=== PATIENT | female | born 1945 | race Caucasian/White ===

== ENCOUNTER 2018-01-25 08:19 | Emergency (ER) | payer MEDICARE, BC ==
--- NOTE | 2018-01-25 08:53 | EDM.PDOC ---
ED HPI GENERAL MEDICAL PROBLEM - General Chief Complaint: Back Pain or Injury Stated Complaint: BACK PAIN Time Seen by Provider: 01/25/18 08:51 Source of Information: Reports: Patient, RN, RN Notes Reviewed History Limitations: Reports: No Limitations - History of Present Illness INITIAL COMMENTS - FREE TEXT/NARRATIVE: Pt presents to ER by POV with c/o severe low back pain with spasms that began Tuesday, with no injury, or causative activity. The pain began all across the lumbar region, but today has moved more to the Rt low back and into the Rt flank and side. She denies hematuria, fever, chills, dysuria, nausea, or vomiting. Pt admits to some recent diarrhea. While giving past medical Hx and informing me of her medications the pt frequently had to stop to concentrate, and stated that her thoughts are "foggy" today. She denies headache, chest pain , or visual changes. Duration: Constant Location: Reports: Back Quality: Reports: Ache (with spasms) Severity: Severe Improves with: Reports: Immobilization, Rest Worsens with: Reports: Movement Associated Symptoms: Reports: No Other Symptoms Back Pain Score (Numeric/FACES): 8 - Related Data Allergies Allergy/AdvReac Type Severity Reaction Status Date / Time oxycodone Allergy severe Verified 01/25/18 08:35 vomiting narcotics Allergy severe Uncoded 01/25/18 08:48 vomiting Home Meds: Home Meds ALPRAZolam [Alprazolam] 0.5 mg PO BID PRN 01/25/18 [History] Amiodarone [Cordarone] 200 mg PO DAILY 01/25/18 [History] Calcitriol 0.25 mcg PO DAILY 01/25/18 [History] Cholecalciferol (Vitamin D3) [Vitamin D3] 2,000 units PO DAILY 01/25/18 [History ] Digoxin 0.125 mg PO Q48H 01/25/18 [History] Furosemide 40 mg PO DAILY PRN 01/25/18 [History] Gabapentin [Neurontin] 100 mg PO TID PRN 01/25/18 [History] Hydrochlorothiazide [Microzide] 12.5 mg PO DAILY 01/25/18 [History] Hydrocortisone [Hydrocortisone 1% Crm] 1 appful TOP ASDIRECTED PRN 01/25/18 [ History] Levothyroxine 75 mcg PO DAILY 01/25/18 [History] Lisinopril 20 mg PO DAILY 01/25/18 [History] [place]-3 Fatty Acids [[place]-3] 100 mg PO DAILY 01/25/18 [History] Rosuvastatin Calcium [Crestor] 40 mg PO DAILY 01/25/18 [History] Vitamin B Complex 1 cap PO DAILY 01/25/18 [History] Warfarin Dosing [Coumadin Ask] 1 tab PO ASDIRECTED 01/25/18 [History] Past Medical History HEENT History: Reports: Impaired Vision Cardiovascular History: Reports: Afib, High Cholesterol, Hypertension Genitourinary History: Reports: Chronic Renal Insuffiency Musculoskeletal History: Reports: Back Pain, Chronic (sciatica) Endocrine/Metabolic History: Reports: Obesity/BMI 30+ Social & Family History - Family History Family Medical History: Noncontributory - Recreational Drug Use Recreational Drug Use: No - Living Situation & Occupation Living situation: Reports: with Spouse Occupation: Retired ED ROS GENERAL - Review of Systems Review Of Systems: ROS reveals no pertinent complaints other than HPI. ED EXAM,LOWER BACK PAIN/INJURY - Physical Exam Exam: See Below Exam Limited By: No Limitations General Appearance: Alert, No Apparent Distress, Obese, Other (uncomfortable appearing) Eye Exam: Bilateral Eye: EOMI, Normal Inspection, PERRL Ears: Hearing Grossly Normal Nose: Normal Inspection, Normal Mucosa, No Blood Throat/Mouth: Normal Inspection, Normal Lips, Normal Teeth, Normal Gums, Normal Oropharynx, Normal Voice, No Airway Compromise Head: Atraumatic, Normocephalic Neck: Normal Inspection, Supple, Non-Tender, Full Range of Motion Respiratory/Chest: No Respiratory Distress, Lungs Clear, Normal Breath Sounds, No Accessory Muscle Use, Chest Non-Tender Cardiovascular: Regular Rate, Rhythm, No Edema GI/Abdominal: Normal Bowel Sounds, Soft, Non-Tender, No Distention, Other ( benign obese abdomen) (Female) Exam: Deferred Rectal (Female) Exam: Deferred Back Exam: CVA Tenderness (R), Decreased Range of Motion (T/L/S spinal regions due to pain), Muscle Spasm (severe lumbar spasms R>L), Paraspinal Tenderness. No: CVA Tenderness (L), Vertebral Tenderness Extremities: Normal Inspection, Normal Range of Motion, Non-Tender, No Pedal Edema. No: Joint Swelling, Marcus's Sign Neurological: Alert, Normal Mood/Affect, Normal Dorsiflexion, CN II-XII Intact, Normal Plantar Flexion, No Motor/Sensory Deficits, Oriented x 3, Other (mild confusion) Psychiatric: Normal Mood Skin Exam: Warm, Dry, Intact, Normal Color, No Rash EKG INTERPRETATION EKG Date: 01/25/18 Time: 10:29 Rhythm: Other (Sinus Naif) Rate (Beats/Min): 59 [place]: Normal P-Wave: Present QRS: Normal ST-T: Normal QT: Normal Comparison: NA - No Prior EKG Course - Vital Signs Last Recorded V/S: Last Vital Signs Temp 37.1 C 01/25/18 08:26 Pulse 57 L 01/25/18 08:26 Resp 18 01/25/18 08:26 BP 111/49 L 01/25/18 08:26 Pulse Ox 100 01/25/18 08:26 - Orders/Labs/Meds Orders: Active Orders 24 hr Category Date Time Status EKG 12 Lead [EKG Documentation Completion] [] STAT Care 01/25/18 10:12 Active Peripheral IV Care [] . DIRECTED Care 01/25/18 09:04 Active Sodium Chloride 0.9% [Saline Flush] Med 01/25/18 09:03 Active 10 ml FLUSH ASDIRECTED PRN Peripheral IV Insertion Adult [OM.PC] Stat Oth 01/25/18 09:03 Ordered Medication Orders Sodium Chloride (Saline Flush) 10 ml FLUSH ASDIRECTED PRN PRN Reason: Keep Vein Open Last Admin: 01/25/18 09:30 Dose: 10 ml Labs: Laboratory Tests 01/25/18 01/25/18 01/25/18 Range/Units 09:07 09:17 09:17 WBC 6.0 (5.0-10.0) 10^3/uL RBC 4.36 (4.2-5.4) 10^6/uL Hgb 12.4 (12.0-16.0) g/dL Hct 39.1 (37.0-47.0) % MCV 89.7 (80-100) fL MCH 28.4 (27.0-34.0) pg MCHC 31.7 L (33.0-35.0) g/dL Plt Count 208 (150-450) 10^3/uL Neut % (Auto) 67.5 (42.2-75.2) % Lymph % (Auto) 23.7 (20.5-50.1) % [place] % (Auto) 6.0 (2-8) % Eos % (Auto) 2.5 (1.0-3.0) % Baso % (Auto) 0.3 (0.0-1.0) % PT 22.1 H (9.0-12.0) SEC INR 2.3 H (0.9-1.2) Sodium (135-145) mmol/L Potassium (3.6-5.0) mmol/L Chloride (101-111) mmol/L Carbon Dioxide (21.0-31.0) mmol/L Anion Gap BUN (7-18) mg/dL Creatinine (0.6-1.3) mg/dL Est Cr Clr Drug Dosing mL/min Estimated GFR (MDRD) BUN/Creatinine Ratio Glucose (74-105) mg/dL Calcium (8.4-10.2) mg/dl Total Bilirubin (0.2-1.0) mg/dL AST (10-42) IU/L ALT (10-60) IU/L Alkaline Phosphatase (42-121) IU/L C-Reactive Protein (0.0-1.3) mg/dL Total Protein (6.7-8.2) g/dl Albumin (3.2-5.5) g/dl Globulin Albumin/Globulin Ratio Urine Color Yellow (YELLOW) Urine Appearance Clear (CLEAR) Urine pH 6.0 (5.0-9.0) Ur Specific [place] 1.015 (1.005-1.030) Urine Protein Negative (NEGATIVE) Urine Glucose (UA) Negative (NEGATIVE) Urine Ketones Negative (NEGATIVE) Urine Occult Blood Trace-lysed H (NEGATIVE) Urine Nitrite Negative (NEGATIVE) Urine Bilirubin Negative (NEGATIVE) Urine Urobilinogen 0.2 (0.2-1.0) mg/dL Ur Leukocyte Esterase Small H (NEGATIVE) Urine RBC 0-5 /HPF Urine WBC 5-10 H (0-5/HPF) /HPF Ur Epithelial Cells Moderate H /HPF Urine Bacteria Moderate H (0-FEW/HPF) /HPF Urine Mucus Few H /LPF Digoxin (0-2.5) ng/ml 09/12/18 09/12/18 09/12/18 Range/Units 09:17 09:17 09:17 WBC (5.0-10.0) 10^3/uL RBC (4.2-5.4) 10^6/uL Hgb (12.0-16.0) g/dL Hct (37.0-47.0) % MCV (80-100) fL MCH (27.0-34.0) pg MCHC (33.0-35.0) g/dL Plt Count (150-450) 10^3/uL Neut % (Auto) (42.2-75.2) % Lymph % (Auto) (20.5-50.1) % [place] % (Auto) (2-8) % Eos % (Auto) (1.0-3.0) % Baso % (Auto) (0.0-1.0) % PT (9.0-12.0) SEC INR (0.9-1.2) Sodium 140 (135-145) mmol/L Potassium 3.6 (3.6-5.0) mmol/L Chloride 102 (101-111) mmol/L Carbon Dioxide 28.0 (21.0-31.0) mmol/L Anion Gap 13.6 BUN 18 (7-18) mg/dL Creatinine 1.4 H (0.6-1.3) mg/dL Est Cr Clr Drug Dosing 33.00 mL/min Estimated GFR (MDRD) 37 BUN/Creatinine Ratio 12.85 Glucose 103 (74-105) mg/dL Calcium 9.0 (8.4-10.2) mg/dl Total Bilirubin 1.1 H (0.2-1.0) mg/dL AST 23 (10-42) IU/L ALT 22 (10-60) IU/L Alkaline Phosphatase 62 (42-121) IU/L C-Reactive Protein 0.5 (0.0-1.3) mg/dL Total Protein 6.9 (6.7-8.2) g/dl Albumin 3.8 (3.2-5.5) g/dl Globulin 3.1 Albumin/Globulin Ratio 1.23 Urine Color (YELLOW) Urine Appearance (CLEAR) Urine pH (5.0-9.0) Ur Specific [place] (1.005-1.030) Urine Protein (NEGATIVE) Urine Glucose (UA) (NEGATIVE) Urine Ketones (NEGATIVE) Urine Occult Blood (NEGATIVE) Urine Nitrite (NEGATIVE) Urine Bilirubin (NEGATIVE) Urine Urobilinogen (0.2-1.0) mg/dL Ur Leukocyte Esterase (NEGATIVE) Urine RBC /HPF Urine WBC (0-5/HPF) /HPF Ur Epithelial Cells /HPF Urine Bacteria (0-FEW/HPF) /HPF Urine Mucus /LPF Digoxin 3.6 H* (0-2.5) ng/ml Meds: Medications Generic Name Dose Route Start Last Admin Trade Name Freq PRN Reason Stop Dose Admin Sodium Chloride 10 ml 01/25/18 09:03 01/25/18 09:30 Saline Flush FLUSH 10 ml ASDIRECTED PRN Administration Keep Vein Open Discontinued Medications Generic Name Dose Route Start Last Admin Trade Name Freq PRN Reason Stop Dose Admin Hydromorphone HCl 0.5 mg 01/25/18 09:06 01/25/18 09:52 Dilaudid IVPUSH 01/25/18 09:07 0.5 mg ONETIME ONE Administration Ondansetron HCl 4 mg 01/25/18 09:05 01/25/18 09:48 Zofran IV 01/25/18 09:06 4 mg ONETIME ONE Administration - Re-Assessments/Exams Free Text/Narrative Re-Assessment/Exam: IMPRESSION: 1. 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 2. Right paracentral/lateral canal disc protrusion at L2-3. Central spinal canal stenosis is likely moderate. The right lateral recess is effaced near the right L3 nerve root. 3. Severe central spinal canal stenosis at L4-5 due to developmental spinal canal narrowing in combination with acquired degenerative changes. The lateral recesses are effaced near the L5 nerve roots. Thank you for allowing us to participate in the care of your patient. Dictated and Authenticated by: Divya Guardado MD 01/25/2018 10:51 AM Central Time ([place] & [place]) 01/25/18 11:13 [facility] Final Radiology Report Call: [phone] assistance Online chat: [email or web address] Name: NOAH NORIEGA Age: 72Years F Date: 01/25/2018 SSN: -- : [id number] Study: CT ABDOMEN/PELVIS WO Requesting Physician: LUISITO BROUSSARD Images: [id number] Addl Studies: Provided Clinical History: possible kidney stone Contrast: Without Contrast Medium: Contrast Amount: Contrast Method: Page 1 of 2 EXAM: CT Abdomen and Pelvis Without Intravenous Contrast EXAM DATE/TIME: 01/25/2018 10:03 AM CLINICAL HISTORY: 72 years old, female; Pain; Abdominal pain; Flank; Right; Prior surgery; Surgery date: 6+ months; Surgery type: Gallbladder; Additional info: Possible kidney stone TECHNIQUE: Axial computed tomography images of the abdomen and pelvis without intravenous contrast. All CT scans at this facility use at least one of these dose optimization techniques: automated exposure control; mA and/or kV adjustment per patient size (includes targeted exams where dose is matched to clinical indication); or iterative reconstruction. Coronal and sagittal reformatted images were created and reviewed. COMPARISON: No relevant prior studies available. FINDINGS: Lower thorax: Minor linear atelectasis versus scarring in the lingula. The lung bases appear emphysematous. There is scarring in the medial right lower lobe. There are cardiac valvular calcifications. ABDOMEN: Liver: Normal. No mass. Gallbladder and bile ducts: Cholecystectomy clips in the gallbladder fossa. Pancreas: Normal. No ductal dilation. Spleen: There are calcified granulomata in the spleen. Adrenals: Normal. No mass. NOAH NORIEGA | Final Radiology Report CONFIDENTIALITY STATEMENT This report is intended only for use by the referring physician, and only in accordance with law. If you received this in error, call [phone]. Page 2 of 2 Kidneys and ureters: No hydronephrosis. There is a punctate calcification in the right pelvis favored to represent venous phleboliths immediately adjacent to the distal ureter. No evidence of an obstructing ureteral calculus. The ureters are nondilated. Stomach and bowel: There is colonic diverticulosis without evidence of diverticulitis. No obstruction. The rectal wall appears thickened and heterogeneous, for example seen on axial image 140 of series 4. The appearance could be related to underdistention or perhaps prominent submucosal fat deposition which can be incidental or has an association with inflammatory bowel disease. Recommend correlation with colonoscopy to exclude malignancy. Appendix: A normal appendix is seen. PELVIS: Bladder: Unremarkable as visualized. Reproductive: The left ovary demonstrates a 1.9 cm cyst which is atypical for age but likely benign. Recommend annual ultrasound followup. ABDOMEN and PELVIS: Intraperitoneal space: Normal. No free air. No significant fluid collection. Bones/joints: No acute fracture seen. Soft tissues: Unremarkable. Vasculature: The aorta demonstrates mild atherosclerosis. Lymph nodes: Normal. No pathologically enlarged lymph nodes. IMPRESSION: 1. No evidence of obstructive uropathy. 2. 1.9 cm left ovarian cyst which is atypical for age but likely benign. Recommend initial annual pelvic ultrasound followup if stability has not been documented. 3. Thickened and heterogeneous appearance of the rectal wall, as described above. Recommend correlation with colonoscopy to exclude malignancy. Thank you for allowing us to participate in the care of your patient. Dictated and Authenticated by: Divya Guardado MD 01/25/2018 11:06 AM Central Time ([place] & [place]) Free Text/Narrative Re-Assessment/Exam: 01/25/18 11:00 Dr. Addison declines admission, and wishes to have the pt transferred to [facility] for digoxin toxicity. Departure - Departure Time of Disposition: 11:49 Disposition: DC/Tfer to Acute Hospital 02 Condition: Serious Clinical Impression: Spasm of muscle of lower back Digoxin toxicity Qualifiers: Encounter type: initial encounter Injury intent: accidental or unintentional Qualified Code(s): T46.0X1A - Poisoning by cardiac-stimulant glycosides and drugs of similar action, accidental (unintentional), initial encounter Acute low back pain Qualifiers: Back pain laterality: bilateral Sciatica presence: without sciatica Qualified Code(s): M54.5 - Low back pain - Discharge Information *PRESCRIPTION DRUG MONITORING PROGRAM REVIEWED*: No *COPY OF PRESCRIPTION DRUG MONITORING REPORT IN PATIENT DORY: No Forms: ED Department Discharge, Interfacility Transfer EMTALA - My Orders Last 24 Hours: My Active Orders 01/25/18 09:03 Sodium Chloride 0.9% [Saline Flush] 10 ml FLUSH ASDIRECTED PRN Peripheral IV Insertion Adult [OM.PC] Stat 01/25/18 09:04 Peripheral IV Care [RC] . DIRECTED 01/25/18 10:12 EKG 12 Lead [EKG Documentation Completion] [RC] STAT - Assessment/Plan Last 24 Hours: My Active Orders 01/25/18 09:03 Sodium Chloride 0.9% [Saline Flush] 10 ml FLUSH ASDIRECTED PRN Peripheral IV Insertion Adult [OM.PC] Stat 01/25/18 09:04 Peripheral IV Care [RC] . DIRECTED 01/25/18 10:12 EKG 12 Lead [EKG Documentation Completion] [RC] STAT
[2018-01-25] MEDS ORDERED: Sodium Chloride 0.9% 10 ML Syringe FLUSH PRN (09:03)
[2018-01-25] MEDS ORDERED: Ondansetron 4 MG/2 ML SDV IV ONE (09:05)
[2018-01-25] MEDS ORDERED: HYDROmorphone 1 MG/ML Syringe IVPUSH ONE (09:06)
[2018-01-25 09:43] LABS: ANION GAP 13.6
--- NOTE | 2018-01-25 19:47 | EKG ---
01/25/2018 - NOAH NORIEGA OCTOBER - TIME: 10:29 a.m. EKG shows a heart rate of 59 beats per minute, sinus rhythm. [facility] /[id number]
== END 2018-01-25 12:42 ==
LOC: DL.ED 08:19
DX: T46.0X1A Poisoning by cardiac-stimulant glycosides and drugs of similar action, accidental (unintentional), initial encounter (principal); M62.830 Muscle spasm of back; M54.5 Low back pain; I12.9 Hypertensive chronic kidney disease with stage 1 through stage 4 chronic kidney disease, or unspecified chronic kidney disease; N18.9 Chronic kidney disease, unspecified; E66.9 Obesity, unspecified; Z88.5 Allergy status to narcotic agent; Z79.01 Long term (current) use of anticoagulants; Z79.899 Other long term (current) drug therapy
CPT/HCPCS: 36415; 72131; 74176; 80053; 80162; 81001; 85025; 85610; 86140; 93005; 93010; 96374; 96375; 99285; J1170; J2405; J7050

== ENCOUNTER 2018-02-01 14:19 | Observation (INO) | payer MEDICARE, BC ==
[2018-02-01] MEDS ORDERED: Sodium Chloride 0.9% 10 ML Syringe FLUSH PRN (14:29)
[2018-02-01] MEDS ORDERED: HYDROmorphone 0.5 MG/0.5 ML Syringe IVPUSH ONE (14:34)
[2018-02-01] MEDS ORDERED: Ondansetron 4 MG/2 ML SDV IV ONE (14:58)
--- NOTE | 2018-02-01 15:01 | EDM.PDOC ---
ED HPI GENERAL MEDICAL PROBLEM - General Stated Complaint: BACK PAIN [id number] Time Seen by Provider: 02/01/18 14:30 Source of Information: Reports: Patient, Family, RN, RN Notes Reviewed History Limitations: Reports: No Limitations - History of Present Illness INITIAL COMMENTS - FREE TEXT/NARRATIVE: Pt to ER with c/o severe low back pain. states the patient had a headache earlier in the day and went to lay down when the pain began very suddenly. She states the pain comes in waves and spasms. The patient was seen in ER on 01/25/18 and transferred to [facility] in [place]. CT and MRI were completed. Patient states there is not any surgical intervention. Patient was discharged yesterday from [facility]. She has been using oral pain medications and muscle relaxants. She states the pain was under control at discharge yesterday. Patient denies any new injury. Onset: Gradual Duration: Intermittent Location: Reports: Back Quality: Reports: Sharp, Stabbing Severity: Severe Improves with: Reports: None Worsens with: Reports: None Associated Symptoms: Reports: No Other Symptoms Treatments SECOND[employer] MAN: Reports: Other Medication(s) (Percocet and Flexeril) Middle Back Pain Score (Numeric/FACES): 10 - Related Data Allergies Allergy/AdvReac Type Severity Reaction Status Date / Time oxycodone Allergy severe Verified 01/25/18 08:35 vomiting narcotics Allergy severe Uncoded 01/25/18 08:48 vomiting Home Meds: Home Meds ALPRAZolam [Alprazolam] 0.5 mg PO BID PRN 01/25/18 [History] Amiodarone [Cordarone] 200 mg PO DAILY 01/25/18 [History] Calcitriol 0.25 mcg PO DAILY 01/25/18 [History] Cholecalciferol (Vitamin D3) [Vitamin D3] 2,000 units PO DAILY 01/25/18 [History ] Digoxin 0.125 mg PO Q48H 01/25/18 [History] Furosemide 40 mg PO DAILY PRN 01/25/18 [History] Gabapentin [Neurontin] 100 mg PO TID PRN 01/25/18 [History] Hydrochlorothiazide [Microzide] 12.5 mg PO DAILY 01/25/18 [History] Hydrocortisone [Hydrocortisone 1% Crm] 1 appful TOP ASDIRECTED PRN 01/25/18 [ History] Levothyroxine 75 mcg PO DAILY 01/25/18 [History] Lisinopril 20 mg PO DAILY 01/25/18 [History] [place]-3 Fatty Acids [[place]-3] 100 mg PO DAILY 01/25/18 [History] Rosuvastatin Calcium [Crestor] 40 mg PO DAILY 01/25/18 [History] Vitamin B Complex 1 cap PO DAILY 01/25/18 [History] Warfarin Dosing [Coumadin Ask] 1 tab PO ASDIRECTED 01/25/18 [History] Past Medical History HEENT History: Reports: Impaired Vision Cardiovascular History: Reports: Afib, High Cholesterol, Hypertension Genitourinary History: Reports: Chronic Renal Insuffiency Musculoskeletal History: Reports: Back Pain, Chronic (sciatica) Neurological History: Reports: Other (See Below) Other Neuro History: siatica pain Psychiatric History: Reports: Anxiety Endocrine/Metabolic History: Reports: Obesity/BMI 30+ Dermatologic History: Reports: Eczema - Past Surgical History GI Surgical History: Reports: Cholecystectomy Social & Family History - Family History Family Medical History: Noncontributory - Living Situation & Occupation Living situation: Reports: with Spouse Occupation: Retired ED ROS GENERAL - Review of Systems Review Of Systems: ROS reveals no pertinent complaints other than HPI. ED EXAM,LOWER BACK PAIN/INJURY - Physical Exam Exam: See Below Exam Limited By: Physical Impairment General Appearance: Alert, Anxious, Severe Distress Eye Exam: Bilateral Eye: EOMI, Normal Inspection Ears: Normal External Exam, Hearing Grossly Normal Nose: Normal Inspection Throat/Mouth: Normal Inspection, Normal Voice, No Airway Compromise, Other (dry mucous membranes) Head: Atraumatic, Normocephalic Neck: Normal Inspection, Limited Range of Motion Respiratory/Chest: No Respiratory Distress, Lungs Clear, Normal Breath Sounds, No Accessory Muscle Use Cardiovascular: Normal Peripheral Pulses, Regular Rate, Rhythm, No Edema, No Gallop, No JVD, No Murmur, No Rub GI/Abdominal: Normal Bowel Sounds, Soft, Non-Tender (Female) Exam: Deferred Rectal (Female) Exam: Deferred Back Exam: Normal Inspection, Decreased Range of Motion, Muscle Spasm Extremities: Normal Inspection, Non-Tender, No Pedal Edema, Normal Capillary Refill, Limited Range of Motion Neurological: Alert, Oriented x 3 Psychiatric: Anxious Skin Exam: Warm, Dry, Intact, Normal Color, No Rash Lymphatic: No Adenopathy Course - Vital Signs Last Recorded V/S: Last Vital Signs Temp 98.7 F 02/01/18 15:05 Pulse 66 02/01/18 15:05 Resp 18 02/01/18 15:05 BP 183/110 H 02/01/18 15:05 Pulse Ox 96 02/01/18 15:05 - Orders/Labs/Meds Orders: Active Orders 24 hr Category Date Time Status Peripheral IV Care [RC] . DIRECTED Care 02/01/18 14:30 Active CBC WITH AUTO DIFF [HEME] Stat Lab 02/01/18 14:45 Results DIGOXIN [CHEM] Stat Lab 02/01/18 14:45 Received MANUAL DIFFERENTIAL QA/NC [HEME] Stat Lab 02/01/18 14:45 Results UA W/MICROSCOPIC [URIN] Stat Lab 02/01/18 14:29 Ordered Sodium Chloride 0.9% [Saline Flush] Med 02/01/18 14:29 Active 10 ml FLUSH ASDIRECTED PRN Peripheral IV Insertion Adult [OM.PC] Stat Oth 02/01/18 14:29 Ordered Medication Orders Sodium Chloride (Saline Flush) 10 ml FLUSH ASDIRECTED PRN PRN Reason: Keep Vein Open Last Admin: 02/01/18 14:50 Dose: 10 ml Labs: Laboratory Tests 02/01/18 02/01/18 Range/Units 14:45 14:45 WBC 12.8 H (5.0-10.0) 10^3/uL RBC 4.43 (4.2-5.4) 10^6/uL Hgb 12.6 (12.0-16.0) g/dL Hct 39.7 (37.0-47.0) % MCV 89.6 (80-100) fL MCH 28.4 (27.0-34.0) pg MCHC 31.7 L (33.0-35.0) g/dL Plt Count 253 (150-450) 10^3/uL Neut % (Auto) 88.3 H (42.2-75.2) % Lymph % (Auto) 6.7 L (20.5-50.1) % [place] % (Auto) 4.8 (2-8) % Eos % (Auto) 0.1 L (1.0-3.0) % Baso % (Auto) 0.1 (0.0-1.0) % Add Manual Diff Yes Sodium 137 (135-145) mmol/L Potassium 3.8 (3.6-5.0) mmol/L Chloride 100 L (101-111) mmol/L Carbon Dioxide 28.0 (21.0-31.0) mmol/L Anion Gap 12.8 BUN 25 H (7-18) mg/dL Creatinine 1.4 H (0.6-1.3) mg/dL Est Cr Clr Drug Dosing 34.28 mL/min Estimated GFR (MDRD) 37 BUN/Creatinine Ratio 17.85 Glucose 161 H (74-105) mg/dL Calcium 7.9 L (8.4-10.2) mg/dl Total Bilirubin 1.5 H (0.2-1.0) mg/dL AST 47 H (10-42) IU/L ALT 46 (10-60) IU/L Alkaline Phosphatase 65 (42-121) IU/L Total Protein 6.3 L (6.7-8.2) g/dl Albumin 3.6 (3.2-5.5) g/dl Globulin 2.7 Albumin/Globulin Ratio 1.33 Meds: Medications Generic Name Dose Route Start Last Admin Trade Name Freq PRN Reason Stop Dose Admin Sodium Chloride 10 ml 02/01/18 14:29 02/01/18 14:50 Saline Flush FLUSH 10 ml ASDIRECTED PRN Administration Keep Vein Open Discontinued Medications Generic Name Dose Route Start Last Admin Trade Name Freq PRN Reason Stop Dose Admin Haloperidol Lactate 5 mg 02/01/18 15:18 Haldol IVPUSH 02/01/18 15:19 ONETIME ONE Hydromorphone HCl 0.5 mg 02/01/18 14:34 02/01/18 14:50 Dilaudid IVPUSH 02/01/18 14:35 0.5 mg ONETIME ONE Administration Ondansetron HCl 4 mg 02/01/18 14:58 02/01/18 15:20 Zofran IV 02/01/18 14:59 4 mg ONETIME ONE Administration Departure - Departure Time of Disposition: 15:46 Disposition: Refer to Observation Condition: Poor Clinical Impression: Spasm of muscle of lower back - Discharge Information *PRESCRIPTION DRUG MONITORING PROGRAM REVIEWED*: No *COPY OF PRESCRIPTION DRUG MONITORING REPORT IN PATIENT DORY: No Forms: ED Department Discharge - My Orders Last 24 Hours: My Active Orders 02/01/18 14:29 UA W/MICROSCOPIC [URIN] Stat Sodium Chloride 0.9% [Saline Flush] 10 ml FLUSH ASDIRECTED PRN Peripheral IV Insertion Adult [OM.PC] Stat 02/01/18 14:30 Peripheral IV Care [RC] . DIRECTED 02/01/18 14:45 CBC WITH AUTO DIFF [HEME] Stat DIGOXIN [CHEM] Stat MANUAL DIFFERENTIAL QA/NC [HEME] Stat - Assessment/Plan Last 24 Hours: My Active Orders 02/01/18 14:29 UA W/MICROSCOPIC [URIN] Stat Sodium Chloride 0.9% [Saline Flush] 10 ml FLUSH ASDIRECTED PRN Peripheral IV Insertion Adult [OM.PC] Stat 02/01/18 14:30 Peripheral IV Care [RC] . DIRECTED 02/01/18 14:45 CBC WITH AUTO DIFF [HEME] Stat DIGOXIN [CHEM] Stat MANUAL DIFFERENTIAL QA/NC [HEME] Stat
[2018-02-01 15:12] LABS: ANION GAP 12.8
[2018-02-01] MEDS ORDERED: Haloperidol Lactate 5 MG/ML SDV IVPUSH ONE (15:18)
[2018-02-01] MEDS ORDERED: Docusate Sodium 100 MG Cap PO PRN (16:30)
[2018-02-01] MEDS ORDERED: Sodium Chloride 0.9% 1,000 ML IV SCH (16:30)
[2018-02-01] MEDS ORDERED: Ondansetron 4 MG/2 ML SDV IVPUSH PRN (16:30)
[2018-02-01] MEDS ORDERED: Magnesium Hydroxide 400 MG/5 ML Susp 30 ML Cup PO PRN (16:30)
[2018-02-01] MEDS ORDERED: Acetaminophen 325 MG Tab PO PRN (16:30)
[2018-02-01] MEDS ORDERED: Heparin Sodium 5,000 Units/ML Vial SUBCUT SCH (16:30)
--- NOTE | 2018-02-01 16:51 | PCM.HP ---
H&P History of Present Illness - General Date of Service: 02/01/18 Admit Problem/Dx: Admission Diagnosis/Problem Admission Diagnosis/Problem Severe back pain Source of Information: Patient, EMS, EMS Notes Reviewed, Family History Limitations: Reports: Other (PAtient sleepy but arousable following haldol injection) - History of Present Illness Initial Comments - Free Text/Narative: Patient is 72 y/o F with PMH of HTN, HLD, Hypothyroidism, A-Fib on coumadin, chornic back pain. She presented to te ER with acute onset of back this afternoon. aptient was discharge from [facility] yesterday for back. She was managed conservatively. 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 She was evaluated by neurosurgery and conservative management recommended. Patient did improve with conservative management and was discharge home yesterday on PO meds andf muscle relaxant. She has been doing well since discharge till this afternoon when she started c/ o severe pain to the back again. Pain is sharp, 10/0, along the whole spine. Non - radiating with no relieving or aggravating factors. She denies lifting heavy weight or trauma. In the ER she received Dilaudid, Haldol was accidentally given instead of Ativan. Onset of Symptoms: Reports: Today Duration of Symptoms: Reports: Day(s): Location: Reports: Back Quality: Reports: Sharp Severity: Severe Improves with: Reports: None, Movement Worsens with: Reports: Immobilization Associated Symptoms: Reports: Headaches Middle Back Pain Score (Numeric/FACES): 10 - Related Data Allergies/Adverse Reactions: Allergies Allergy/AdvReac Type Severity Reaction Status Date / Time oxycodone Allergy severe Verified 01/25/18 08:35 vomiting narcotics Allergy severe Uncoded 01/25/18 08:48 vomiting Home Medications: Home Meds ALPRAZolam [Alprazolam] 0.5 mg PO BID PRN 01/25/18 [History] Amiodarone [Cordarone] 200 mg PO DAILY 01/25/18 [History] Calcitriol 0.25 mcg PO DAILY 01/25/18 [History] Cholecalciferol (Vitamin D3) [Vitamin D3] 2,000 units PO DAILY 01/25/18 [History ] Furosemide 40 mg PO DAILY PRN 01/25/18 [History] Gabapentin [Neurontin] 100 mg PO TID 01/25/18 [History] Hydrochlorothiazide [Microzide] 12.5 mg PO DAILY PRN 01/25/18 [History] Hydrocortisone [Hydrocortisone 1% Crm] 1 appful TOP ASDIRECTED PRN 01/25/18 [ History] Levothyroxine 75 mcg PO DAILY 01/25/18 [History] Lisinopril 20 mg PO DAILY 01/25/18 [History] [place]-3 Fatty Acids [[place]-3] 100 mg PO DAILY 01/25/18 [History] Rosuvastatin Calcium [Crestor] 40 mg PO DAILY 01/25/18 [History] Vitamin B Complex 1 cap PO DAILY 01/25/18 [History] Warfarin Dosing [Coumadin Ask] 1 tab PO ASDIRECTED 01/25/18 [History] Past Medical History HEENT History: Reports: Impaired Vision Cardiovascular History: Reports: Afib, High Cholesterol, Hypertension Gastrointestinal History: Reports: Chronic Constipation Genitourinary History: Reports: Chronic Renal Insuffiency COOK SHIP History: Reports: Musculoskeletal History: Reports: Back Pain, Chronic Neurological History: Reports: Other (See Below) Other Neuro History: siatica pain Psychiatric History: Reports: Anxiety Endocrine/Metabolic History: Reports: Obesity/BMI 30+ Dermatologic History: Reports: Eczema - Infectious Disease History Infectious Disease History: Reports: Chicken Pox, Measles - Past Surgical History GI Surgical History: Reports: Cholecystectomy Social & Family History - Family History Family Medical History: Noncontributory - Tobacco Use Smoking Status *Q: Never Smoker Second Hand Smoke Exposure: No - Caffeine Use Caffeine Use: Reports: None - Recreational Drug Use Recreational Drug Use: No - Living Situation & Occupation Living situation: Reports: with Spouse Occupation: Retired H&P Review of Systems - Review of Systems: Review Of Systems: See Below General: Reports: No Symptoms HEENT: Reports: Headaches Pulmonary: Reports: No Symptoms Cardiovascular: Reports: No Symptoms Gastrointestinal: Reports: No Symptoms Genitourinary: Reports: No Symptoms Musculoskeletal: Reports: Back Pain Skin: Reports: No Symptoms Psychiatric: Reports: No Symptoms Neurological: Reports: No Symptoms Hematologic/Lymphatic: Reports: No Symptoms Immunologic: Reports: No Symptoms Exam - Exam Exam: See Below - Vital Signs Vital Signs: Last Vital Signs Temp 97.8 F 02/01/18 16:14 Pulse 68 02/01/18 16:14 Resp 18 02/01/18 16:14 BP 171/94 H 02/01/18 16:14 Pulse Ox 95 02/01/18 16:14 Weight: 279 lb - Exam Quality Assessment: DVT Prophylaxis, Other (patient drowsy from haldol injcection but able to respond to question) General: Alert, Oriented, Lethargic HEENT: PERRLA, Hearing Intact, Mucosa Moist & [place], Nares Patent, Normal Nasal Septum, Posterior Pharynx Clear, Conjunctiva Clear, EOMI, EACs Clear, TMs Clear Neck: Supple, Trachea Midline, 2 Lungs: Clear to Auscultation, Normal Respiratory Effort Cardiovascular: Regular Rate, Regular Rhythm GI/Abdominal Exam: Normal Bowel Sounds, Soft, Non-Tender, No Organomegaly, No Distention, No Abnormal Bruit, No Mass, Pelvis Stable (Female) Exam: Normal External Exam, Normal Speculum Exam, Normal Bimanual Exam Rectal (Female) Exam: Deferred Back Exam: Normal Inspection, Decreased Range of Motion, Muscle Spasm, Paraspinal Tenderness, Other (Limited range of motion due to pain) Extremities: Normal Inspection, Normal Range of Motion, Non-Tender, No Pedal Edema, Normal Capillary Refill Skin: Warm, Dry, Intact Neurological: Cranial Nerves Intact, Reflexes Equal Bilateral Neuro Extensive - Mental Status: Alert, Oriented x3, Normal Mood/Affect, Normal Cognition Neuro Extensive - Motor, Sensory, Reflexes: CN II-XII Intact, Normal Gait, Normal Reflexes Psychiatric: Alert, Normal Affect, Normal Mood - Patient Data Lab Results Last 24 hrs: Laboratory Results - last 24 hr 02/01/18 02/01/18 02/01/18 Range/Units 14:45 14:45 14:45 WBC 12.8 H (5.0-10.0) 10^3/uL RBC 4.43 (4.2-5.4) 10^6/uL Hgb 12.6 (12.0-16.0) g/dL Hct 39.7 (37.0-47.0) % MCV 89.6 (80-100) fL MCH 28.4 (27.0-34.0) pg MCHC 31.7 L (33.0-35.0) g/dL Plt Count 253 (150-450) 10^3/uL Neut % (Auto) 88.3 H (42.2-75.2) % Lymph % (Auto) 6.7 L (20.5-50.1) % [place] % (Auto) 4.8 (2-8) % Eos % (Auto) 0.1 L (1.0-3.0) % Baso % (Auto) 0.1 (0.0-1.0) % Add Manual Diff Yes Neutrophils % (Manual) 88 H (42-75) % Band Neutrophils % 2 % Lymphocytes % (Manual) 5 L (20-50) % Monocytes % (Manual) 5 (2-8) % Sodium 137 (135-145) mmol/L Potassium 3.8 (3.6-5.0) mmol/L Chloride 100 L (101-111) mmol/L Carbon Dioxide 28.0 (21.0-31.0) mmol/L Anion Gap 12.8 BUN 25 H (7-18) mg/dL Creatinine 1.4 H (0.6-1.3) mg/dL Est Cr Clr Drug Dosing 34.28 mL/min Estimated GFR (MDRD) 37 BUN/Creatinine Ratio 17.85 Glucose 161 H (74-105) mg/dL Calcium 7.9 L (8.4-10.2) mg/dl Total Bilirubin 1.5 H (0.2-1.0) mg/dL AST 47 H (10-42) IU/L ALT 46 (10-60) IU/L Alkaline Phosphatase 65 (42-121) IU/L Total Protein 6.3 L (6.7-8.2) g/dl Albumin 3.6 (3.2-5.5) g/dl Globulin 2.7 Albumin/Globulin Ratio 1.33 Digoxin 0.3 (0-2.5) ng/ml Result Diagrams: 02/01/18 14:45 02/01/18 14:45 Problem List Initiated/Reviewed/Updated: Yes Orders Last 24hrs: Active Orders 24 hr Category Date Time Status Patient Status [ADT] Routine ADT 02/01/18 16:30 Ordered Notify Provider Vital Signs [RC] ASDIRECTED Care 02/01/18 16:31 Ordered Oxygen Therapy [RC] PRN Care 02/01/18 16:30 Ordered Peripheral IV Care [RC] , Care 02/01/18 14:30 Active Up With Assistance [RC] ASDIRECTED Care 02/01/18 16:30 Ordered VTE/DVT Education [RC] PER UNIT ROUTINE Care 02/01/18 16:30 Ordered Vital Signs [RC] Q4H Care 02/01/18 16:30 Ordered OT Evaluation and Treatment [CONS] Routine Cons 02/01/18 16:30 Ordered PT Evaluation and Treatment [CONS] Routine Cons 02/01/18 16:30 Ordered Regular Diet [DIET] Diet 02/01/18 Dinner Ordered UA W/MICROSCOPIC [URIN] Stat Lab 02/01/18 14:29 Ordered Acetaminophen [Tylenol] Med 02/01/18 16:30 Ordered 650 mg PO Q4H PRN Docusate Sodium [Colace] Med 02/01/18 16:30 Ordered 100 mg PO BID PRN Heparin Sodium Med 02/01/18 16:30 Ordered 5,000 units SUBCUT Q12H Magnesium Hydroxide [Milk of Magnesia] Med 02/01/18 16:30 Ordered 30 ml PO Q12H PRN Ondansetron [Zofran] Med 02/01/18 16:30 Ordered 4 mg IVPUSH Q6H PRN Sodium Chloride 0.9% [Normal Saline] 1,000 ml Med 02/01/18 16:30 Ordered IV ASDIRECTED Sodium Chloride 0.9% [Saline Flush] Med 02/01/18 14:29 Active 10 ml FLUSH ASDIRECTED PRN Peripheral IV Insertion Adult [OM.PC] Stat Oth 02/01/18 14:29 Ordered Resuscitation Status Routine Resus Stat 02/01/18 16:30 Ordered Medication Orders Acetaminophen (Tylenol) 650 mg PO Q4H PRN PRN Reason: Pain (Mild 1-3)/fever Docusate Sodium (Colace) 100 mg PO BID PRN PRN Reason: Constipation Heparin Sodium (Porcine) (Heparin Sodium) 5,000 units SUBCUT Q12H [facility] Sodium Chloride (Normal Saline) 1,000 mls @ 75 mls/hr IV ASDIRECTED [facility] Magnesium Hydroxide (Milk Of Magnesia) 30 ml PO Q12H PRN PRN Reason: Constipation Ondansetron HCl (Zofran) 4 mg IVPUSH Q6H PRN PRN Reason: Nausea/Vomiting Sodium Chloride (Saline Flush) 10 ml FLUSH ASDIRECTED PRN PRN Reason: Keep Vein Open Last Admin: 02/01/18 14:50 Dose: 10 ml Assessment/Plan Comment:: Acute on chronic back pain Patient presented back to the ER with acute severe low back pain in the midline. No radiation to buttock or R leg. No fevers. No dysuria. No trauma. No urinary or bowel incontinence. Will refer to oservation and ensure pain control. Consult PT/OT Consider repeat MRI of the vertebra if pain persist A Fib On coumadin, dig, and amio HLD On statin HTN Continue home meds Hypothyroid On synthroid. Check TSH Regular diet Code Status: Full
[2018-02-01] MEDS ORDERED: Acetaminophen/HYDROcodone 325-10 MG Tab PO PRN (17:08)
[2018-02-01] MEDS ORDERED: Non-Formulary Medication 1 Each (Sennosides [Senna] 2 TAB) PO PRN (18:19)
[2018-02-01] MEDS ORDERED: Furosemide 40 MG Tab PO PRN (18:19)
[2018-02-01] MEDS ORDERED: HYDROCHLOROTHIAZIDE 12.5 MG PO PRN (18:19)
[2018-02-01] MEDS ORDERED: ALPRAZolam 0.5 MG Tab PO PRN (18:19)
[2018-02-01] MEDS ORDERED: Morphine 2 MG/ML Syringe IVPUSH PRN (19:02)
[2018-02-01] MEDS ORDERED: Warfarin 2.5 MG Tab PO ONE (19:15)
--- NOTE | 2018-02-01 20:04 | PCM.DCSUM1 ---
Discharge Summary - Hospital Course Free Text/Narrative:: Patient is 72 y/o F with PMH of HTN, HLD, Hypothyroidism, A-Fib on coumadin, chornic back pain. She presented to te ER with acute onset of back this afternoon. aptient was discharge from [facility] yesterday for back. She was managed conservatively. 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 She was evaluated by neurosurgery and conservative management recommended. Patient did improve with conservative management and was discharge home on 01/30 on PO meds and muscle relaxant. She has been doing well since discharge till this afternoon when she started c/ o severe pain to the back again. Pain is sharp, 10/0, along the whole spine. Non - radiating with no relieving or aggravating factors. She was able to walk and move her legs and admitted for pain control. By 7 pm pt reported tingling in legs and has been unable to move legs. No mri is available and she will be transferred to higher level of care for further evaluation and treatment. Diagnosis: Stroke: No - Discharge Data Discharge Date: 02/01/18 Discharge Disposition: Home, Self-Care 01 Condition: Good - Patient Summary/Data Consults: Consultations 02/01/18 16:30 OT Evaluation and Treatment [CONS] Routine PT Evaluation and Treatment [CONS] Routine - Discharge Plan *PRESCRIPTION DRUG MONITORING PROGRAM REVIEWED*: No *COPY OF PRESCRIPTION DRUG MONITORING REPORT IN PATIENT DORY: No Home Medications: Home Meds ALPRAZolam [Alprazolam] 0.5 mg PO BID PRN 01/25/18 [History] Amiodarone [Cordarone] 200 mg PO DAILY 01/25/18 [History] Calcitriol 0.25 mcg PO DAILY 01/25/18 [History] Cholecalciferol (Vitamin D3) [Vitamin D3] 2,000 units PO DAILY 01/25/18 [History ] Furosemide 40 mg PO DAILY PRN 01/25/18 [History] Gabapentin [Neurontin] 100 mg PO TID 01/25/18 [History] Hydrochlorothiazide [Microzide] 12.5 mg PO DAILY PRN 01/25/18 [History] Levothyroxine 75 mcg PO DAILY 01/25/18 [History] Lisinopril 20 mg PO DAILY 01/25/18 [History] Rosuvastatin Calcium [Crestor] 40 mg PO DAILY 01/25/18 [History] Warfarin Dosing [Coumadin Ask] 2.5 mg PO DAILY 01/25/18 [History] Acetaminophen [Tylenol] 650 mg PO Q4H PRN tablet 02/01/18 [Rx] Cyclobenzaprine [Flexeril] 5 mg PO TID 02/01/18 [History] Docusate Sodium 100 mg PO BID PRN 02/01/18 [History] Docusate Sodium [Colace] 100 mg PO BID PRN cap 02/01/18 [Rx] Heparin Sodium 5,000 units SUBCUT Q12H vial 02/01/18 [Rx] Hydrocodone/Acetaminophen [Lorcet Hd 10-325 mg Tablet] 1 tab PO Q6HR PRN [History] Multivit-Min/Iron Fum/Folic AC [Cjeqc-Zhprslg-[place] Tablet] 1 tab PO DAILY [History] [place]-3/DHA/Epa/Fish Oil [Fish Oil 1,000 mg Softgel] 1,000 mg PO DAILY 02/01/18 [History] Sennosides [Senna] 2 tab PO BID PRN 02/01/18 [History] predniSONE [Prednisone] 20 mg PO BID 02/01/18 [History] - General Info Date of Service: 02/01/18 Functional Status: Denies: Pain Controlled - Review of Systems General: Denies: Fever Pulmonary: Denies: Shortness of Breath Cardiovascular: Denies: Chest Pain Musculoskeletal: Reports: Back Pain (low back) Neurological: Denies: Confusion Psychiatric: Reports: Anxiety - Patient Data Vitals - Most Recent: Last Vital Signs Temp 36.6 C 02/01/18 16:14 Pulse 68 02/01/18 16:14 Resp 18 02/01/18 16:14 BP 171/94 H 02/01/18 16:14 Pulse Ox 95 02/01/18 16:30 Weight - Most Recent: 126.552 kg Lab Results - Last 24 hrs: Laboratory Results - last 24 hr 02/01/18 02/01/18 02/01/18 Range/Units 14:45 14:45 14:45 WBC 12.8 H (5.0-10.0) 10^3/uL RBC 4.43 (4.2-5.4) 10^6/uL Hgb 12.6 (12.0-16.0) g/dL Hct 39.7 (37.0-47.0) % MCV 89.6 (80-100) fL MCH 28.4 (27.0-34.0) pg MCHC 31.7 L (33.0-35.0) g/dL Plt Count 253 (150-450) 10^3/uL Neut % (Auto) 88.3 H (42.2-75.2) % Lymph % (Auto) 6.7 L (20.5-50.1) % [place] % (Auto) 4.8 (2-8) % Eos % (Auto) 0.1 L (1.0-3.0) % Baso % (Auto) 0.1 (0.0-1.0) % Add Manual Diff Yes Neutrophils % (Manual) 88 H (42-75) % Band Neutrophils % 2 % Lymphocytes % (Manual) 5 L (20-50) % Monocytes % (Manual) 5 (2-8) % PT (9.0-12.0) SEC INR (0.9-1.2) Sodium 137 (135-145) mmol/L Potassium 3.8 (3.6-5.0) mmol/L Chloride 100 L (101-111) mmol/L Carbon Dioxide 28.0 (21.0-31.0) mmol/L Anion Gap 12.8 BUN 25 H (7-18) mg/dL Creatinine 1.4 H (0.6-1.3) mg/dL Est Cr Clr Drug Dosing 34.28 mL/min Estimated GFR (MDRD) 37 BUN/Creatinine Ratio 17.85 Glucose 161 H (74-105) mg/dL Calcium 7.9 L (8.4-10.2) mg/dl Total Bilirubin 1.5 H (0.2-1.0) mg/dL AST 47 H (10-42) IU/L ALT 46 (10-60) IU/L Alkaline Phosphatase 65 (42-121) IU/L Total Protein 6.3 L (6.7-8.2) g/dl Albumin 3.6 (3.2-5.5) g/dl Globulin 2.7 Albumin/Globulin Ratio 1.33 Digoxin 0.3 (0-2.5) ng/ml 02/01/18 Range/Units 14:45 WBC (5.0-10.0) 10^3/uL RBC (4.2-5.4) 10^6/uL Hgb (12.0-16.0) g/dL Hct (37.0-47.0) % MCV (80-100) fL MCH (27.0-34.0) pg MCHC (33.0-35.0) g/dL Plt Count (150-450) 10^3/uL Neut % (Auto) (42.2-75.2) % Lymph % (Auto) (20.5-50.1) % [place] % (Auto) (2-8) % Eos % (Auto) (1.0-3.0) % Baso % (Auto) (0.0-1.0) % Add Manual Diff Neutrophils % (Manual) (42-75) % Band Neutrophils % % Lymphocytes % (Manual) (20-50) % Monocytes % (Manual) (2-8) % PT 23.7 H (9.0-12.0) SEC INR 2.4 H (0.9-1.2) Sodium (135-145) mmol/L Potassium (3.6-5.0) mmol/L Chloride (101-111) mmol/L Carbon Dioxide (21.0-31.0) mmol/L Anion Gap BUN (7-18) mg/dL Creatinine (0.6-1.3) mg/dL Est Cr Clr Drug Dosing mL/min Estimated GFR (MDRD) BUN/Creatinine Ratio Glucose (74-105) mg/dL Calcium (8.4-10.2) mg/dl Total Bilirubin (0.2-1.0) mg/dL AST (10-42) IU/L ALT (10-60) IU/L Alkaline Phosphatase (42-121) IU/L Total Protein (6.7-8.2) g/dl Albumin (3.2-5.5) g/dl Globulin Albumin/Globulin Ratio Digoxin (0-2.5) ng/ml Med Orders - Current: Current Medications Acetaminophen (Tylenol) 650 mg PO Q4H PRN PRN Reason: Pain (Mild 1-3)/fever Hydrocodone Bitart/Acetaminophen ([place] 325-10 Mg) 1 tab PO Q6H PRN PRN Reason: Pain Last Admin: 02/01/18 17:32 Dose: 1 tab Alprazolam (Xanax) 0.5 mg PO BID PRN PRN Reason: Anxiety Amiodarone HCl (Cordarone) 200 mg PO DAILY [facility] Calcitriol (Rocaltrol) 0.25 mcg PO DAILY [facility] Cyclobenzaprine HCl (Flexeril) 5 mg PO TID [facility] Docusate Sodium (Colace) 100 mg PO BID PRN PRN Reason: Constipation Furosemide (Lasix) 40 mg PO DAILY PRN PRN Reason: swelling Gabapentin (Neurontin) 100 mg PO TID [facility] Heparin Sodium (Porcine) (Heparin Sodium) 5,000 units SUBCUT Q12H [facility] Last Admin: 02/01/18 17:32 Dose: 5,000 units Sodium Chloride (Normal Saline) 1,000 mls @ 75 mls/hr IV ASDIRECTED [facility] Last Admin: 02/01/18 17:31 Dose: 75 mls/hr Levothyroxine Sodium (Levothyroxine) 75 mcg PO DAILY [facility] Lisinopril (Prinivil) 20 mg PO DAILY [facility] Magnesium Hydroxide (Milk Of Magnesia) 30 ml PO Q12H PRN PRN Reason: Constipation Morphine Sulfate (Morphine) 1 mg IVPUSH Q4H PRN PRN Reason: Pain Last Admin: 02/01/18 19:14 Dose: 1 mg Vitamin D3 1000 Unit (/Cap Own Med) 0 units PO DAILY [facility] Hydrochlorothiazide (12.5 Mg Own Med) 0 mg PO DAILY PRN PRN Reason: Edema Non-Formulary Medication (Multivit-Min/Iron Fum/Folic Ac [Multi-Vitamin- Minerals Tablet]) 1 tab PO DAILY [facility] Non-Formulary Medication ([place]-3/Dha/Epa/Fish Oil [Fish Oil 1,000 Mg Softgel]) 1,000 mg PO DAILY [facility] Rosuvastatin 40 Mg (Own Med) 0 mg PO DAILY [facility] Non-Formulary Medication (Sennosides [Senna]) 2 tab PO BID PRN PRN Reason: Constipation Ondansetron HCl (Zofran) 4 mg IVPUSH Q6H PRN PRN Reason: Nausea/Vomiting Prednisone (Prednisone) 20 mg PO DAILY [facility] Stop: 02/06/18 09:01 Sodium Chloride (Saline Flush) 10 ml FLUSH ASDIRECTED PRN PRN Reason: Keep Vein Open Last Admin: 02/01/18 14:50 Dose: 10 ml Warfarin Sodium (Pharmacy To Dose - Warfarin) 1 dose .XX ASDIRECTED [facility] Warfarin Sodium (Coumadin) 2.5 mg PO ONETIME ONE Stop: 02/01/18 19:16 Discontinued Medications Cyclobenzaprine HCl (Flexeril) 10 mg PO TID [facility] Haloperidol Lactate (Haldol) 5 mg IVPUSH ONETIME ONE Stop: 02/01/18 15:19 Last Admin: 02/01/18 15:29 Dose: 5 mg Hydromorphone HCl (Dilaudid) 0.5 mg IVPUSH ONETIME ONE Stop: 02/01/18 14:35 Last Admin: 02/01/18 14:50 Dose: 0.5 mg Ondansetron HCl (Zofran) 4 mg IV ONETIME ONE Stop: 02/01/18 14:59 Last Admin: 02/01/18 15:20 Dose: 4 mg - Exam General: Reports: Alert, Oriented Neck: Reports: Supple GI/Abdominal Exam: Other (obese) Extremities: No Pedal Edema Neurological: Reports: Sensation Intact (in legs), Other (can not move legs, can not move toes, flaccid LEs) Psy/Mental Status: Reports: Anxious
[2018-02-01] MEDS ORDERED: Cyclobenzaprine 10 MG Tab **OWN MED PO SCH (21:00)
[2018-02-01] MEDS ORDERED: Cyclobenzaprine 10 MG Tab PO SCH (21:00)
[2018-02-01] MEDS ORDERED: Gabapentin 100 MG Cap **OWN MED PO SCH (21:00)
[2018-02-02] MEDS ORDERED: Levothyroxine 75 MCG Tab PO SCH (09:00)
[2018-02-02] MEDS ORDERED: FOLIC AC PO SCH (09:00)
[2018-02-02] MEDS ORDERED: VITAMIN D3 PO SCH (09:00)
[2018-02-02] MEDS ORDERED: Non-Formulary Medication 1 Each (Omega-3/Dha/Epa/Fish Oil [Fish Oil 1,000 Mg Softgel] 1,00 PO SCH (09:00)
[2018-02-02] MEDS ORDERED: Calcitriol 0.25 MCG Cap PO SCH (09:00)
[2018-02-02] MEDS ORDERED: [UNRECOGNIZED DRUG - OTHER] PO SCH (09:00)
[2018-02-02] MEDS ORDERED: ROSUVASTATIN 40 MG PO SCH (09:00)
[2018-02-02] MEDS ORDERED: Lisinopril 20 MG Tab PO SCH (09:00)
[2018-02-02] MEDS ORDERED: predniSONE 10 MG Tab PO SCH (09:00)
[2018-02-02] MEDS ORDERED: MULTIVIT MIN PO SCH (09:00)
[2018-02-02] MEDS ORDERED: IRON FUM PO SCH (09:00)
[2018-02-02] MEDS ORDERED: Amiodarone 200 MG Tab PO SCH (09:00)
== END 2018-02-01 20:30 ==
LOC: DL.ED 14:19 → DL.MS 15:50 → UNDOADMOB 15:50 → DL.MS 16:30
PROVIDERS: ADMIT Student in an Organized Health Care Education/Training Program; ATTEND Student in an Organized Health Care Education/Training Program
DX: G89.29 Other chronic pain (principal); M54.5 Low back pain; I48.91 Unspecified atrial fibrillation; I10 Essential (primary) hypertension; E78.5 Hyperlipidemia, unspecified; E03.9 Hypothyroidism, unspecified; M48.061 Spinal stenosis, lumbar region without neurogenic claudication; M51.36 Other intervertebral disc degeneration, lumbar region; Z79.01 Long term (current) use of anticoagulants; Z79.899 Other long term (current) drug therapy; Z88.5 Allergy status to narcotic agent
CPT/HCPCS: 36415; 80053; 80162; 85025; 85610; 96372; 96374; 96375; 96376; 99284; A9270; G0378; J1170; J1630; J1644; J2270; J2405; J7030; J7050

== ENCOUNTER 2023-12-30 16:12 | Emergency (ER) | payer MEDICARE, BC | END 2023-12-30 17:09 | disposition home or self-care (01) | LOC: DL.ED 16:12 | DX: N30.00 Acute cystitis without hematuria (principal); I48.91 Unspecified atrial fibrillation; E78.00 Pure hypercholesterolemia, unspecified; I12.9 Hypertensive chronic kidney disease with stage 1 through stage 4 chronic kidney disease, or unspecified chronic kidney disease; N18.9 Chronic kidney disease, unspecified; Z88.5 Allergy status to narcotic agent; Z86.73 Personal history of transient ischemic attack (TIA), and cerebral infarction without residual deficits; Z79.899 Other long term (current) drug therapy; Z90.49 Acquired absence of other specified parts of digestive tract | CPT/HCPCS: 99283 ==

== ENCOUNTER 2024-05-20 17:40 | Emergency (ER) | payer MEDICARE, BC ==
[2024-05-20] MEDS: Orphenadrine 60 MG/2 ML Inj IM ONE (20:37)
[2024-05-20] MEDS: Ketorolac 30 MG/ML SDV IM ONE (20:37)
== END 2024-05-20 20:39 | disposition home or self-care (01) ==
LOC: DL.ED 17:40
DX: M25.561 Pain in right knee (principal); M25.571 Pain in right ankle and joints of right foot; I12.9 Hypertensive chronic kidney disease with stage 1 through stage 4 chronic kidney disease, or unspecified chronic kidney disease; N18.9 Chronic kidney disease, unspecified; I48.91 Unspecified atrial fibrillation; E78.00 Pure hypercholesterolemia, unspecified; E66.9 Obesity, unspecified; Z79.899 Other long term (current) drug therapy; Z90.49 Acquired absence of other specified parts of digestive tract; Z79.01 Long term (current) use of anticoagulants; Z79.52 Long term (current) use of systemic steroids; Z88.5 Allergy status to narcotic agent; Z68.42 Body mass index [BMI] 45.0-49.9, adult; W18.30XA Fall on same level, unspecified, initial encounter
CPT/HCPCS: 73560; 73610; 96372; 99283; J1885; J2360